=== PATIENT | male | born 1995 | race Caucasian/White ===

== ENCOUNTER 2025-10-01 16:21 | Emergency (ER) | payer OTHER | END 2025-10-01 18:31 | disposition home or self-care (01) | LOC: ED 16:21 | DX: S09.90XA Unspecified injury of head, initial encounter (principal); M54.2 Cervicalgia; R11.0 Nausea; V49.40XA Driver injured in collision with unspecified motor vehicles in traffic accident, initial encounter; Y93.89 Activity, other specified; Y92.410 Unspecified street and highway as the place of occurrence of the external cause; Y99.8 Other external cause status ==